=== PATIENT | female | born 1955 | race Caucasian/White ===

== ENCOUNTER → 2020-11-22 08:45 | Outpatient (CLI) | payer BC, SELFPAY ==
[2020-11-22 11:47] LABS: COVID19 -Nasal RAPID Negative (Negative)
== END ==
PROVIDERS: Visit Provider Student in an Organized Health Care Education/Training Program
DX: Z20.822 Contact with and (suspected) exposure to COVID-19 (principal)
CPT/HCPCS: 87635

== ENCOUNTER 2020-11-24 07:34 | Day surgery (SDC) | payer BC, SELFPAY ==
[2020-11-24] VITALS (7 sets, daily range): BP systolic 85–113; BP diastolic 42–72; PULSE 62–73; RESP 12–16; TEMP 36.1–36.6; O2SAT 94–99; BMI 26.0
[2020-11-24] MEDS: LACTATED RINGERS 1,000 ML 100 ML IV ×2 (08:13→11:11)
--- NOTE | 2020-11-24 08:19 | SUR.PREOP ---
Right foot and toes cleaned with 2% chlorhexidine wipes.
--- NOTE | 2020-11-24 09:13 | SUR.PREOP ---
Pt moved to block room for sciatic and adductor canal block on the right. 1917 - Dr Johnson at bedside. Time out performed. Monitoring initiated and O2 placed at 2L NC. Sedation given by Dr Johnson. 0923 - Injection time for sciatic nerve 0932 - Injection time for adductor nerve 0934 - Block complete. Pt remained stable throughout procedure. No adverse reactions noted. See VS strips.
--- NOTE | 2020-11-24 09:25 | P.OP_ITS ---
Operative Date/Time/Diagnoses Date of procedure: 11/24/20 Time of procedure: 09:26 Pre-op diagnosis: Right hallux abductovalgus with bunion, tailor's (fifth metatarsal) bunion pain Post-op diagnosis: same Procedure & Clinicians Procedure: 1. Right bunionectomy 2. Right first metatarsocuneiform arthrodesis 3. Right fifth metatarsal closing wedge osteotomy 4. Right tailor's bunionectomy Same procedure as scheduled: Yes Indications: Painful bunion and bunionette to the right foot. Conservative measures failed to alleviate her pain and she wished to have surgical intervention at this time. Risks and potential complications as well as SPECT outcomes are reviewed. No contraindication to the procedures at this time. Surgeon: Carmina Gonzalez Click Yes if Unassisted: Yes Anesthesia Type: General and Peripheral nerve block Operative Notes Closure Type: primary Specimen(s): none sent Prosthetic devices, grafts, tissues, transplants, or devices: 3-0, 4-0 vicryl, 3-0 nylon Applied: implant(s) (Timnath Lapidus plate, 4.0 x 42, 3.5 x 12,16,22 locking and x16 non-locking screws. ) Estimated Blood Loss (mL): 15 Blood products transfused: none Tourniquet time (min): 102 Procedure in detail: The patient was brought to the operating room and placed on the operating table in the supine position. In the preoperative holding area, a lower extremity peripheral nerve block was performed by the anesthesiologist. The tourniquet was placed about the thigh. Well padded appropriately aligned. After induction of general anesthesia the foot and ankle were prepped and draped in the usual aseptic manner. The tourniquet was inflated. Incision was made over the right 1st metatarsal cuneiform joint extending to the 1st metatarsophalangeal joint. The incision was deepened through subcutaneous tissues being careful to identify and retract all vital neurovascular structures. All bleeders were cauterized and ligated as necessary. A capsulotomy was performed to the 1st MTPJ exposing the enlarged medial eminence. Attention was then directed to the 1st metatarsocuneiform joint which was entered. The joint was taken down and a saw was used to resect the base of the 1st metatarsal and the distal leading edge of the medial cuneiform. This was done at a slight angle on the medial cuneiform to allow for closure of the intermetatarsal angle. The area was then able to be closed and the alignment was good. A forked osteotome was used to fenestrate either side of the former MC joint and fish scaling was also used. The area was irrigated with copious amounts normal sterile saline. With the aid of C-arm the guidewire was placed for temporary fixation through the 1st metatarsocuneiform joint. It was noted to make sure that there was not a significant amount of plantar flexion distally. Next the lag screw was placed from distal lateral to proximal medial. The fusion site showed good compression and closure. The plate was then attached with the corresponding screws in the normal AO technique. This was reviewed on C-arm and noted to be strong and in appropriate alignment. The saw was used to resect the medial eminence and a little of the spurring on the dorsal head of the first metatarsal. Once this was loaded it would appear that there did not need to be a distal metatarsal osteotomy or hallux phalangeal osteotomy and instead capsule balancing techniques with the soft tissue were appropriate. Next attention was directed to the fifth metatarsal. An incision was made along the dorsal head to just distal to the base of the metatarsal, being careful to identify and retract all vital neurovascular structures. All bleeders were cauterized and ligated as necessary. Verifying the angle of the metatarsal from the fourth metatarsal, decision was made to perform a closing base wedge osteotomy. Two bone cuts were made in the proximal diaphysis into the metaphysis, and the wedge of bone was removed, the lateral cortex remaining intact. This was gently closed with reduction forceps and verified on c-arm to be in good alignment. Using standard AO technique, a 2.5 cannulated screw was placed across the location and able to close down the osteotomy. The foot was loaded and in good alignment. There was still a little enlargement of the lateral eminence and this bunion along the fifth metatarsal was resected using a saw. Final pictures taken via C-arm. The area was irrigated with normal saline. The medial 1st MTP capsule and lateral fifth MTP capsule were closed down and aligned with Vicryl. The tourniquet was deflated and a prompt hyperemic response was seen to the foot. Deep and subcutaneous closure was closed performed with Vicryl and nylon to the skin. The foot was dressed with a lightly compressive sterile dressing. She was then placed in a postoperative shoe and transferred to PACU with vital signs stable. Complications: none Post-operative Condition: stable Disposition: PACU Plan for aftercare: Following a period of postoperative monitoring, the patient be discharged home on written and oral postoperative instructions including keeping the dressing dry and intact, non-weightbearing to the surgical foot, icing and elevating the foot when seated home. DVT prevention techniques have been reviewed. For the 1st postoperative visit the dressing will be changed and close to the fourth postoperative week we will likely have x-rays.
--- NOTE | 2020-11-24 09:25 | PM.PREOP ---
Pre-operative Note COVID-19 COVID-19 status: Negative Result date/Date tested (Pos, Neg/Pending): 11/22/20 Interval Note History & Physical reviewed/Exam performed by Physician: Yes Changes to H&P: No
[2020-11-24] MEDS: CEFAZOLIN 2 GM/100 ML FROZ.PIGGY IV (09:40)
--- NOTE | 2020-11-24 10:04 | SUR.OPER ---
Supine on padded OR bed, head on pillow, arms secured on padded arm boards at <90 degrees abduction, legs uncrossed, bump under right hip, right leg under control of surgeon, safety belt at pelvis, tape over blanket over left lower leg.
--- NOTE | 2020-11-24 10:21 | P.PCN_ITS ---
Procedures Date/Time Date of procedure: 11/24/20 Time of procedure: 09:15 General Procedure description: Ultrasound guided popliteal sciatic and adductor canal saphenous nerve block for post op pain control after right foot surgery by Dr. Gonzalez. Risk and benefits of procedure discussed with patient. ASA monitoring applied to patient. Oxygen given via nasal cannula. 2 mg Versed and 50 mcg fentanyl given for procedural sedation. Skin site was prepped with chlorhexidine and allowed to fully dry. Sterile gloves, mask, hat and probe cover were used to maintain sterility. 2% lidocaine and 30ga needle was used to make a small skin wheal at needle insertion site. Under ultrasound guidance, a 21ga 100mm Pajunk needle was directed near the division of the sciatic nerve into tibial and peroneal nerve in the popliteal fossa (lateral approach). Patient reported no parasthesias. After negative aspiration, 15 mL 0.5% ropivicaine and 5mg dex amethasone were injected around sciatic nerve. Patient tolerated procedure well. In similar sterile fashion, adductor canal saphenous nerve block was performed. 100mm Pajunk needle guided by US near femoral artery in adductor canal at level of mid thigh. After negative aspiration, 15mL 0.5% ropivacaine plus 5mg dexamethasone was injected. Patient tolerated procedure well. Upper photo: Sciatic nerve at popliteal fossa Lower photo: Adductor canal at mid thigh
--- NOTE | 2020-11-24 15:19 | SUR.PHASEII ---
Pt was held due to overly sleepy per pts request. While her VS were in the mid to upper 80's over mid to upper 50's, after review of both her arrival and intraop VS both showed similar results. Pt was escorted to the restroom and angela gordo was provided. She stated that she was feeling much better after urination and was discharged into the care of her sister Deborah in stable condition
== END 2020-11-24 15:07 | disposition home or self-care (01) ==
PROVIDERS: Referring Provider Podiatrist; Visit Provider Podiatrist
PROC: 0QBN0ZZ Excision of Right Metatarsal, Open Approach (ICD-10-PCS; CPT 28292; principal; 2020-11-24 09:15)
DX: M20.11 Hallux valgus (acquired), right foot; M21.621 Bunionette of right foot; M21.611 Bunion of right foot; M79.671 Pain in right foot
CPT/HCPCS: 28297; 28308; J0690; J1100; J1885; J2250; J2405; J2704; J3010

== ENCOUNTER → 2023-02-28 11:14 | Outpatient (CLI) | payer BC, SELFPAY | PROVIDERS: Visit Provider Physician Assistant | DX: N89.8 Other specified noninflammatory disorders of vagina (principal) | CPT/HCPCS: 87210 ==

== ENCOUNTER → 2024-10-21 13:48 | Outpatient (CLI) | payer OTHER, SELFPAY ==
--- NOTE | 2024-10-21 13:52 | DI.RAD.S_ITS ---
PROCEDURE: XR FOOT RT MIN 3V INDICATIONS: foot pain TECHNIQUE: 3 views of the foot were acquired. COMPARISON: None. FINDINGS: Bones: There are no focal osseous abnormalities . Moderate pes planus noted. Medial 1st metatarsal head shaving has corrected a hallux valgus deformity. mild hammertoe deformity in the 3rd 4th and 5th digits. Joints: Mild degeneration in the 1st MTP and the 2nd through 5th interphalangeal joints Soft tissues: No soft tissue abnormality. IMPRESSION: Chronic findings as described Dictated by: Teofilo Ram M.D. on 10/22/2024 at 12:04 Approved by: Teofilo Ram M.D. on 10/22/2024 at 12:05
== END ==
PROVIDERS: Referring Provider Podiatrist Foot & Ankle Surgery; Visit Provider Podiatrist Foot & Ankle Surgery
DX: M79.671 Pain in right foot (principal); M21.071 Valgus deformity, not elsewhere classified, right ankle; M20.41 Other hammer toe(s) (acquired), right foot; M21.41 Flat foot [pes planus] (acquired), right foot; M19.071 Primary osteoarthritis, right ankle and foot
CPT/HCPCS: 73630

== ENCOUNTER → 2025-05-13 17:09 | Outpatient (CLI) | payer OTHER, SELFPAY ==
--- NOTE | 2025-05-13 17:12 | DI.MRI.S_ITS ---
PROCEDURE: MR FOOT RT WO CON INDICATIONS: OSTEOARTHRITIS TECHNIQUE: Multiphasic, multisequence MRI of the forefoot was performed, without intravenous contrast administration. COMPARISON: None. FINDINGS: Image quality: Excellent. Bones and joints: Changes of 1st metatarsal bunionectomy and 1st tarsometatarsal joint instrumented arthrodesis. Severe degenerate arthrosis of the navicular-medial cuneiform joint with avum-[id number] articulation, subchondral bone marrow edema and large subchondral cystic change in the medial cuneiform joint. Postsurgical changes in the proximal shaft of the 5th metatarsal. Partial-thickness articular cartilage loss of the sesamoidal-metatarsal joints. No stress fracture. No suspicious intraosseous lesions. Soft tissues: The visualized plantar foot muscles demonstrate normal signal and bulk. Visualized flexor and extensor tendons appear intact, without tenosynovitis. The distal insertions of the peroneus brevis and longus tendons appear intact. The principal Lisfranc ligament appears intact. No soft tissue ganglion cysts or bursal fluid collections. Sagittal images demonstrate no evidence for plantar plate tears. IMPRESSION: 1. Changes of bunionectomy and postsurgical changes in the proximal shaft of the 5th metatarsal. 2. Severe osteoarthritis the navicular-medial cuneiform joint with [id number] articulation and large subchondral cystic change. 3. 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 Dictated by: Bon Hook M.D. on 05/16/2025 at 11:17 Approved by: Bon Hook M.D. on 05/16/2025 at 12:04
== END ==
PROVIDERS: Referring Provider Podiatrist; Visit Provider Podiatrist
DX: M19.071 Primary osteoarthritis, right ankle and foot (principal); M94.271 Chondromalacia, right ankle and joints of right foot; Z98.1 Arthrodesis status
CPT/HCPCS: 73718